=== PATIENT | female | born 1995 | race American Indian/Alaskan Native ===

== ENCOUNTER 2020-01-08 23:00 | Emergency (ER) | payer OTHER ==
[~2020-01-08] VITALS: Ht 165.1 cm; Wt 59.0 kg
== END 2020-01-09 06:28 | disposition home or self-care (01) ==
LOC: ED 23:00
DX: F10.129 Alcohol abuse with intoxication, unspecified (principal); Y90.8 Blood alcohol level of 240 mg/100 ml or more
CPT/HCPCS: 70450; 72125; 99284-25; G0480

== ENCOUNTER 2021-12-19 06:00 | Day surgery (SDC) | payer OTHER ==
[~2021-12-19] VITALS: Ht 165.1 cm; Wt 71.8 kg
[~2021-12-19 06:00] MED LIST: CLONAZEPAM0.5 MG PO; PROZAC20 MG PO
--- NOTE | 2021-12-19 09:41 | NUR ---
12/19/21 0941 Gina Daniels 0852 PT ARRIVED IN PACU NON RESPONSIVE TO NOXIOUS STIMULI WITH OPA IN PLACE. 0855 PT REACTIVE. OPA REMOVED. 0900 C/O FEELING COLD. WARM BLANKETS AND ELA PAWS ON. 15 RESTING. REU. 0935 TO DS. NO C/O'S. REPORT GIVEN TO RN. FAMILY AT BEDSIDE.
--- NOTE | 2021-12-19 09:49 | NUR ---
0935: PT ARRIVES TO DS TREATMENT ROOM FROM PACU VIA STRETCHER WITH EYES CLOSED. PT DENIES PAIN OR NAUSEA WHEN ASKED. PT COLD AND HAS SEVERAL BLANKETS IN PLACE. FAMILY AT BEDSIDE, CALL LIGHT WITHIN REACH.
--- NOTE | 2021-12-19 10:42 | NUR ---
1030: CHECKED PATIENT. SLEEPING. AWAKENS EASILY TO VOICE. VS CHECKED. DENIES PAIN. ABDOMINAL BANDAIDS X 3 WITH SCANT AMOUNT OF DRAINAGE. PATIENT HAS NO NEEDS AT THIS TIME. FAMILY AT BEDSIDE. WILL CONTINUE TO LET PATIENT SLEEP. CALL LIGHT WITHIN REACH.
--- NOTE | 2021-12-19 11:44 | NUR ---
1135: PATIENT STILL SLEEPING. AWAKENED FOR VS CHECK AND ASSESSMENT. DENIES PAIN. ABDOMINAL SITES WITH RED DRAINAGE. SCANT AMOUNT OF DRAINAGE ON RIGHT AND LEFT LAP SITES. SMALL AMOUNT OF DRAINAGE FROM UMBILICUS SITE. IV SITE WNL. SCDs ON. CALL LIGHT WITHIN REACH.
--- NOTE | 2021-12-19 12:36 | NUR ---
PATIENT AWAKENED FOR VS CHECK. LIGHTS TURNED ON. HEAD OF BED RAISED. PATIENT GIVEN ICE WATER AND BHANU CRACKERS. MOM AT BEDSIDE. CALL LIGHT WITHIN REACH.
[2021-12-19] MEDS ORDERED: IBUPROFEN800 MG PO (12:48)
[2021-12-19] MEDS ORDERED: TYLENOL EXTRA500 MG PO (12:49)
[2021-12-19] MEDS ORDERED: OXYCODONE HCL5 MG PO (12:50)
[2021-12-19] MEDS ORDERED: ONDANSETRON ODT8 MG PO (12:51)
--- NOTE | 2021-12-19 14:14 | NUR ---
1245: PATIENT MEDICATED FOR PAIN WITH 1 TAB OF PERCOCET. MOTHER AT BEDSIDE. CALL LIGHT WITHIN REACH. 1315: PATIENT ASSISTED OOB AND TO BATHROOM. GAIT STEADY. VOID APPROXIMATELY 1000 ML. GAIT STEADY BACK TO ROOM. PATIENT GETTING DRESSED. 1340: DISCHARGE INSTRUCTIONS GIVEN TO PATIENT AND MOTHER. IV DC'D WNL. TIP INTACT. DRESSING APPLIED. PATIENT DISCHARGED TO HOME WITH MOTHER VIA WHEELCHAIR.
--- NOTE | 2021-12-21 09:41 | PATH ---
[facility] [address] [place], [place] [address] Signed SPECIMEN(S): A RIGHT OVARY AND FALLOPIAN TUBE SPECIMEN SOURCE: A. RIGHT OVARY AND FALLOPIAN TUBE CLINICAL HISTORY: Right ovarian mass. Laparoscopy. 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 - Non-neoplastic benign stroma demonstrates a cystic follicle. - Fallopian tube within normal limits. TWK:tommyw:C2NR MICROSCOPIC EXAMINATION: Histologic sections of all submitted blocks are examined by light microscopy. These findings, together with the gross examination, support the pathologic diagnosis. GROSS DESCRIPTION: The specimen, labeled "WK" is received in formalin and consists of a deflated right ovary specimen with the fallopian tube and fimbria. The right ovary measures 15 x 15 x 1 cm. The fallopian tube measures 8.5 x 1.3 cm and the fimbria measures 2.5 x 2 x 1.3 cm. The serosal surface is pink, smooth and glistening with a vascular pattern, entirely inked in blue. Within the inner surface there is an oval-shaped yellow area that measures 4 x 3.5 x 1 cm in height. The cut surfaces reveals fibroadipose and yellow content with focal calcified areas and hairs. The remainder of inner surface is smooth, glistening and pink with a vascular pattern. Drum Sprayer sections are submitted in cassettes (A1-A4). (A1) - Fallopian tube and fimbria. (A2) - Oval-shaped yellow area with hair and creamy content. (A3-A4) - Ovarian wall full-thickness. KV (under the direct supervision of a pathologist) The Gross Description was prepared using a voice recognition system. The report was reviewed for accuracy; however, sound-alike word errors, addition and/or deletions may occur. If there is any question about this report, please contact Client Services. PATIENT NAME: BRANDI HERNANDES PATHOLOGY DATE OF : [birth year] REPORT #: [id number] PHYSICIAN: GIA PATHOLOGY PCP: [facility] REPORT IS CONFIDENTIAL AND NOT TO BE RELEASED WITHOUT AUTHORIZATION [facility] [address] [place], [place] [address] Signed PERFORMING LABORATORY: The technical component was performed by [facility], [address] [place] [id number] (CLIA# [id number]). The professional interpretation [facility] performed by [facility], [facility], [facility] [address] [address] (CLIA#: [id number]). Diagnostician: Clement Reed MD Pathologist Electronically Signed 12/21/2021 Copies: ~ PATIENT NAME: BRANDI HERNANDES PATHOLOGY DATE OF : [birth year] REPORT #: [id number] PHYSICIAN: GIA NICKERSON [facility] REPORT IS CONFIDENTIAL AND NOT TO BE RELEASED WITHOUT AUTHORIZATION
--- NOTE | 2021-12-25 08:01 | OR ---
[facility] [address] [place], [place] [address] Signed DATE OF OPERATION: 12/19/2021 SURGEON: Carmen Aviles MD QUANTITATIVE ANALYST: MANUEL Avery DO PREOPERATIVE DIAGNOSIS: Right ovarian mass, probable dermoid. POSTOPERATIVE DIAGNOSIS: Right ovarian mass, probable dermoid, pending pathology. PROCEDURE: Laparoscopy, right salpingo-oophorectomy. ANESTHESIA: General ET. ESTIMATED BLOOD LOSS: 10 mL. DRAINS: None. INDICATIONS AND FINDINGS: The patient is a 26-year-old female 0, who had increasing abdominal pain in late November and presented to the emergency room for evaluation. At that time, she was found to have a very large right ovarian mass with CT consistent with a dermoid. The patient has been avoiding [facility] care for some time and has actually never had a pelvic exam. At the time of surgery, she did undergo Pap smear under anesthesia per prior arrangement. The uterus was normal. The right ovary was quite enlarged and presented above the umbilicus and mostly to the right. The patient's left tube and ovary were normal. At the time of laparoscopy, there was a very large mass, which presented above the umbilicus. Following drainage of the mass, it appeared very smooth. The fluid inside the mass was clear. DESCRIPTION OF PROCEDURE: The patient was prepped and draped in the dorsal lithotomy position. Pap smear had been obtained prior to vaginal prep and the cervix did appear normal. The cervix was Electronically Signed By: CARMEN AVILES MD 12/25/21 0801 PATIENT NAME: BRANDI HERNANDES OPERATIVE REPORT DATE OF : [birth year] REPORT #: [id number] PHYSICIAN: CARMEN AVILES MD PCP: [facility] REPORT IS CONFIDENTIAL AND NOT TO BE RELEASED WITHOUT AUTHORIZATION [facility] [address] [place], [place] [address] Signed visualized after placement of a weighted speculum. The anterior lip of the cervix was grasped with a single-tooth tenaculum and the Hulka clamp placed. The tenaculum and speculum were removed. Attention was directed above. Because of the size of the mass, the incision was made supraumbilically in the midline. This area was injected with 0.5% Marcaine plain. An incision was made with a knife and each layer serially elevated and incised until the fascia was opened and identified and stay sutures of 0 Vicryl were placed. The peritoneum was opened bluntly. This brought the incision to the upper aspect of the mass. The small Grayson was introduced into the incision and a lap tape packed around the top of the mass. An incision was made with a knife at the top of the mass and suction was used to suck out the contents of the cyst. Both with suction introduced into the mass as well as another suction to collect any fluid that escaped from this. At the conclusion of this drainage, there was almost 2000 mL of fluid that had been obtained. Following this, the mass had been drained pretty much completely. The Grayson retractor was removed and the fascial incision was closed somewhat to allow for the pneumoperitoneum to be re-accumulated after placement of the Kathrin. This was done with a running suture of 0 Vicryl. The Kathrin was then placed and the balloon inflated. Placement of the scope confirmed proper positioning and CO2 was introduced. Secondary ports were placed laterally and slightly below the level of the umbilicus. Each of these was injected with the Marcaine after transillumination and incised with a knife and the trocars placed under direct vision. These were both 5 mm ports. Following this, the patient's right ovary and tube, which had been completely deflated but was still quite large, were from their connections. The patient's right infundibulopelvic ligament was serially coagulated and divided using the LigaSure [place] device. After division, 0 PDS endo-loop was placed over the infundibulopelvic ligament to assure hemostasis. This was done x2. Following this, the LigaSure device was used to serially coagulate the broad ligament and come across the utero-ovarian ligament as well. When this was completely free, the scope was switched to the side port and the 5 mm scope introduced. The endobag was placed and the specimen placed into the bag and brought up to the umbilical port. The Kathrin was removed and the bag brought up to the incision and this was brought through the incision in the bag. The Kathrin was replaced and again the balloon inflated. The abdomen was reinspected and there was no evidence of any ongoing bleeding. The abdomen was then copiously irrigated to assure there was no fluid from the cyst present. Approximately 3000 ml of irrigation were used during this time. Following this, the procedure was terminated with removal of the instruments. As much CO2 as possible was allowed to escape. The fascial incision at the umbilical site was reidentified and closed with a running suture of 0 Vicryl. The deep space was also closed with an interrupted suture of 0- Vicryl. Superficial bleeding points at the left sided port were controlled with cautery. The skin incisions were closed with subcuticular sutures of 3-0 Vicryl Rapide. Attention was directed down below and the Hulka clamp removed. There was no evidence of any ongoing bleeding. All sponge and needle counts were correct. She was taken to recovery room in good condition. Electronically Signed By: CARMEN AVILES MD 12/25/21 0801 PATIENT NAME: BRANDI HERNANDES OPERATIVE REPORT DATE OF : [birth year] REPORT #: [id number] PHYSICIAN: CARMEN AVILES MD PCP: [facility] REPORT IS CONFIDENTIAL AND NOT TO BE RELEASED WITHOUT AUTHORIZATION [address] [address] Signed Carmen Aviles MD PJW/MODL /[id number] cc: Angel Luis Avery [facility] Copies: ANGEL LUIS [facility] ~ Electronically Signed By: CARMEN AVILES MD 12/25/21 0801 PATIENT NAME: BRANDI HERNANDES OPERATIVE REPORT DATE OF : [birth year] REPORT #: [id number] PHYSICIAN: CARMEN AVILES MD PCP: [facility] REPORT IS CONFIDENTIAL AND NOT TO BE RELEASED WITHOUT AUTHORIZATION
== END 2021-12-19 13:40 | disposition home or self-care (01) ==
LOC: DS 06:00
PROVIDERS: ATTEND Obstetrics & Gynecology
PROC: 0UT54ZZ Resection of Right Fallopian Tube, Percutaneous Endoscopic Approach (ICD-10-PCS; 2021-12-19)
PROC: 0UT04ZZ Resection of Right Ovary, Percutaneous Endoscopic Approach (ICD-10-PCS; principal; 2021-12-19 07:30)
DX: D27.0 Benign neoplasm of right ovary (principal)
CPT/HCPCS: 88307; J0131; J1100; J1644; J1885; J2001; J2250; J2370; J2405; J2704; J2765; J3010; J7121

== ENCOUNTER 2023-04-20 21:27 | Emergency (ER) | payer OTHER ==
[~2023-04-20] VITALS: Ht 165.1 cm; Wt 86.2 kg
[~2023-04-20 21:27] MED LIST changes: +CYMBALTA20 MG PO; +ESCITALOPRAM OXA5 MG PO; +IBUPROFEN800 MG PO; +ONDANSETRON ODT8 MG PO; +OXYCODONE HCL5 MG PO; +TYLENOL EXTRA500 MG PO
--- OUTSIDE RECORDS SUMMARY | 2023-04-20 21:31 | XMS ---
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 [place] has no Care Guidelines for this patient. Yoan VISIT COUNT (12 MO.) 3 [facility] TOTAL 3 NOTE: Visits indicate total known visits. ED/C VISIT TRACKING (12 MO.) 04/20/2023 21:28 [facility] [place] TYPE: Emergency COMPLAINT: - COLD SYMPTOMS 06/17/2022 17:53 [facility] [place] TYPE: Emergency COMPLAINT: - SUICIDAL IDEATION DIAGNOSES: - Alcohol use, unspecified, uncomplicated - Contact with and (suspected) exposure to COVID-19 - Major depressive disorder, single episode, unspecified - Other oysterman (current) drug therapy - Suicidal ideations 05/20/2022 02:59 [facility] [place] TYPE: Emergency COMPLAINT: - SUICIDAL IDEATION DIAGNOSES: - Alcohol abuse with intoxication, unspecified - Blood alcohol level of 240 mg/100 ml or more - Contact with and (suspected) exposure to COVID-19 - Depression, unspecified - Other detention (current) drug therapy - Suicidal ideations INPATIENT VISIT TRACKING (12 MO.) No inpatient visits to display in this time frame [email or web address]
[2023-04-20] MEDS ORDERED: BENZONATATE200 MG PO (21:41)
[2023-04-20] MEDS ORDERED: NAPROSYN500 MG PO (22:11)
[2023-04-20] MEDS ORDERED: FLONASE ALLERG9.9 ML NAS (22:11)
[2023-04-20] MEDS ORDERED: NAPROXEN 500 MG TAB PO ONE (22:15)
== END 2023-04-20 22:20 | disposition home or self-care (01) ==
LOC: ED 21:27
DX: J30.9 Allergic rhinitis, unspecified (principal); R09.82 Postnasal drip; S29.011A Strain of muscle and tendon of front wall of thorax, initial encounter; X58.XXXA Exposure to other specified factors, initial encounter; Z79.899 Other long term (current) drug therapy

== ENCOUNTER 2023-08-01 13:58 | Emergency (ER) | payer OTHER ==
[~2023-08-01] VITALS: Ht 165.1 cm; Wt 87.2 kg
[~2023-08-01 13:58] MED LIST changes: +BENZONATATE200 MG PO; +FLONASE ALLERG9.9 ML NAS; +NAPROSYN500 MG PO
--- OUTSIDE RECORDS SUMMARY | 2023-08-01 14:01 | XMS ---
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 Yoan VISIT COUNT (12 MO.) 3 [facility] TOTAL 3 NOTE: Visits indicate total known visits. ED/UCC VISIT TRACKING (12 MO.) 08/01/2023 13:58 [facility] [place] [place] TYPE: Emergency COMPLAINT: - SUICIDAL IDEATIONS 06/23/2023 10:39 [facility] [place] TYPE: Emergency COMPLAINT: - OVERDOSE DIAGNOSES: - Poisoning by benzodiazepines, intentional self-harm, initial encounter - Poisoning by propionic acid derivatives, intentional self-harm, initial encounter - Suicidal ideations - Vomiting, unspecified 04/20/2023 21:28 [facility] [place] TYPE: Emergency COMPLAINT: - COLD SYMPTOMS DIAGNOSES: - Allergic rhinitis, unspecified - Cough, unspecified - Exposure to other specified factors, initial encounter - Other long term care social worker (current) drug therapy - Postnasal drip - Strain of muscle and tendon of front wall of thorax, initial encounter INPATIENT VISIT TRACKING (12 MO.) No inpatient visits to display in this time frame [email or web address]
[2023-08-01 14:33] LABS: BILIRUBIN, URINE NEGATIVE (negative); BLOOD/HGB, URINE NEGATIVE (Negative); KETONE, URINE NEGATIVE (Negative); LEUK ESTERASE, URINE TRACE (negative); NITRITE, URINE NEGATIVE (negative)
[2023-08-01 14:35] LABS: BASOPHILS 1.2 % (0-2); EOSINOPHILS 3.2 % (0-6); HEMATOCRIT 44.7 % (35.0-50.0); HEMOGLOBIN 14.7 g/dL (12.0-18.0); LYMPHOCYTES 34.8 % (24-44); MCHC 32.9 g/dl (30-36); MCV 88.3 fl (81-99); MONOCYTES 3.6 % (0-12); NEUTROPHILS 57.2 % (39-80); PLATELET COUNT 324 K/uL (140-440); RBC 5.06 M/ul (4.3-5.7); RDW 16.8 (10.5-15.0)
[2023-08-01 14:45] LABS: RED BLOOD CELLS, URINE 0-1 /hpf (0-5)
[2023-08-01 14:46] LABS: BACTERIA, URINE NONE SEEN /hpf (negative); CASTS, URINE NONE SEEN \\lpf; COLLECTION TYPE, URINE CLEAN CATCH; CRYSTALS, URINE NONE SEEN (0-1+); REFLEX CULTURE, URINE No (No)
[2023-08-01 14:47] LABS: AMPHETAMINES, URINE NEGATIVE (NEGATIVE); BARBITURATES, URINE NEGATIVE (NEGATIVE); BENZODIAZEPINE, URINE NEGATIVE (NEGATIVE); BUPRENORPHINE, URINE NEGATIVE (NEGATIVE); CANNABINOID, URINE NEGATIVE (NEGATIVE); COCAINE, URINE NEGATIVE (NEGATIVE); ECSTASY, URINE NEGATIVE (NEGATIVE); FENTANYL, URINE NEGATIVE (NEGATIVE); METHADONE, URINE NEGATIVE (NEGATIVE); OPIATES, URINE NEGATIVE (NEGATIVE); OXYCODONE, URINE NEGATIVE (NEGATIVE); PHENCYCLIDINE, URINE NEGATIVE (NEGATIVE)
[2023-08-01 14:52] LABS: ACETAMINOPHEN 0 ug/mL (10-30); SALICYLATE 1.1 mg/dL (2.8-20.0)
[2023-08-01 15:02] LABS: ALBUMIN 4.1 g/dL (3.4-5.0); ALBUMIN/GLOBULIN RATIO 0.95 (1.1-2.4); ALCOHOL, MEDICAL 234 ng/dL (<3); ALKALINE PHOSPHATASE 85 U/L (46-116); ALT (SGPT) 143 U/L (14-59); ANION GAP 18.9 (7-21); AST (SGOT) 143 U/L (15-37); BILIRUBIN, TOTAL 0.2 ng/dL (0.2-1.0); BUN/CREATININE RATIO 4.47 (6.0-28.6); CALCIUM 8.5 mg/dL (8.5-10.1); CARBON DIOXIDE 22 mmol/L (21-32); CHLORIDE 102 mmol/L (98-107); CREATININE, SERUM 0.67 mg/dL (0.55-1.02); GLOMERULAR FILTRATION RATE,EST 124 mL/min (>60); POTASSIUM 3.9 mmol/L (3.5-5.1); PROTEIN, TOTAL 8.4 g/dL (6.4-8.2); TSH, 3RD GENERATION 0.973 uIU/mL (0.358-3.740); UREA NITROGEN 3 mg/dL (7-18)
[2023-08-01 16:19] LABS: SOURCE, WET MOUNT VAGINAL; WBC, WET MOUNT 1+ (NEGATIVE)
[2023-08-01 16:21] LABS: BACTERIA, WET MOUNT 1+ (NEGATIVE); CLUE CELLS, WET MOUNT NEGATIVE (NEGATIVE); TRICHOMONAS, WET MOUNT NEGATIVE (NEGATIVE); YEAST, WET MOUNT NEGATIVE (NEGATIVE)
[2023-08-01 16:22] LABS: RBC, WET MOUNT 3+ (NEGATIVE)
[2023-08-01 16:23] LABS: EPITHELIAL CELLS, WET MOUNT NEGATIVE (NEGATIVE)
[2023-08-01 16:43] VITALS: BP 114/86
[2023-08-01 17:30] LABS: N. GONORRRHOEAE BY PCR NOT DETECTED (NOT DETECT)
[2023-08-03 15:00] LABS: RAPID PLASMA REAGIN (RPR) Non Reactive (Non Reactive)
== END 2023-08-01 16:49 | disposition other institution, planned readmission (95) ==
LOC: ED 13:58
PROVIDERS: Emergency Medicine
DX: R45.851 Suicidal ideations (principal); F10.129 Alcohol abuse with intoxication, unspecified; R74.01 Elevation of levels of liver transaminase levels; Z79.899 Other long term (current) drug therapy
CPT/HCPCS: 36415; 80053; 80307; 81001; 84443; 84703; 85025; 87210; 99285; G0480

== ENCOUNTER 2024-04-24 20:29 | Emergency (ER) | payer OTHER ==
[~2024-04-24] VITALS: Ht 165.1 cm; Wt 125.6 kg
[2024-04-24 20:45] LABS: BASOPHILS 1.2 % (0-2); EOSINOPHILS 2.6 % (0-6); HEMATOCRIT 41.9 % (35.0-50.0); HEMOGLOBIN 13.8 g/dL (12.0-18.0); LYMPHOCYTES 46.3 % (24-44); MCH 28.5 (27-36); MCHC 32.9 g/dl (30-36); MCV 86.8 fl (81-99); MONOCYTES 4.4 % (0-12); NEUTROPHILS 45.5 % (39-80); PLATELET COUNT 360 K/uL (140-440); RBC 4.83 M/ul (4.3-5.7)
[2024-04-24] MEDS ORDERED: MIDAZOLAM HCL 2 MG/2 ML VIAL IV ONE (20:45)
[2024-04-24] MEDS ORDERED: DIPHTH,PERTUSS(ACELL),TET VAC 0.5 ML SYRINGE IM ONE (20:45)
[2024-04-24] MEDS ORDERED: LACTATED RINGER'S 1,000 ML IV ONE ×2 (20:45→23:45)
[2024-04-24 20:56] LABS: ALBUMIN 3.5 g/dL (3.4-5.0); ALBUMIN/GLOBULIN RATIO 0.9 (1.1-2.4); ANION GAP 20.5 (7-21); BILIRUBIN, TOTAL 0.3 mg/dL (0.2-1.0); BUN/CREATININE RATIO 7.46 (6.0-28.6); CALCIUM 8.2 mg/dL (8.5-10.1); CREATININE, SERUM 0.67 mg/dL (0.55-1.02); POTASSIUM 3.5 mmol/L (3.5-5.1); PROTEIN, TOTAL 7.4 g/dL (6.4-8.2)
[2024-04-24 21:31] LABS: ABO O; ANTIBODY SCREEN NEGATIVE; RH POSITIVE
[2024-04-24 21:34] LABS: BILIRUBIN, URINE NEGATIVE (negative); BLOOD/HGB, URINE TRACE-I (Negative); KETONE, URINE NEGATIVE (Negative); LEUK ESTERASE, URINE NEGATIVE (negative); NITRITE, URINE NEGATIVE (negative)
[2024-04-24 21:44] LABS: BACTERIA, URINE RARE /hpf (negative); CASTS, URINE NONE SEEN \\lpf; COLLECTION TYPE, URINE CLEAN CATCH; CRYSTALS, URINE NONE SEEN (0-1+); EPITHELIAL CELLS, URINE SQUAMOUS 1+ /lpf (0-1+); REFLEX CULTURE, URINE No (No)
[2024-04-24 22:00] LABS: AMPHETAMINES, URINE NEGATIVE (NEGATIVE); BARBITURATES, URINE NEGATIVE (NEGATIVE); BENZODIAZEPINE, URINE NEGATIVE (NEGATIVE); BUPRENORPHINE, URINE NEGATIVE (NEGATIVE); CANNABINOID, URINE NEGATIVE (NEGATIVE); COCAINE, URINE NEGATIVE (NEGATIVE); ECSTASY, URINE NEGATIVE (NEGATIVE); FENTANYL, URINE NEGATIVE (NEGATIVE); METHADONE, URINE NEGATIVE (NEGATIVE); OPIATES, URINE NEGATIVE (NEGATIVE); OXYCODONE, URINE NEGATIVE (NEGATIVE); PHENCYCLIDINE, URINE NEGATIVE (NEGATIVE)
[2024-04-24 22:24] LABS: ACETAMINOPHEN 0 ug/mL (10-30); SALICYLATE 1.6 mg/dL (2.8-20.0); TSH, 3RD GENERATION 2.692 uIU/mL (0.358-3.740)
[2024-04-25 08:28] VITALS: BP 126/102
== END 2024-04-25 08:28 | disposition home or self-care (01) ==
LOC: ED 20:29
PROVIDERS: Family Medicine
DX: S16.1XXA Strain of muscle, fascia and tendon at neck level, initial encounter (principal); S80.11XA Contusion of right lower leg, initial encounter; S80.12XA Contusion of left lower leg, initial encounter; R45.851 Suicidal ideations; F10.929 Alcohol use, unspecified with intoxication, unspecified; Y90.8 Blood alcohol level of 240 mg/100 ml or more; V89.2XXA Person injured in unspecified motor-vehicle accident, traffic, initial encounter; Z79.899 Other long term (current) drug therapy
CPT/HCPCS: 36415; 70450; 70486; 71260; 72125; 74177; 80053; 80307; 81001; 83690; 84443; 84703; 85025; 86850; 86900; 86901; 90471; 90715; 99284-25; G0480; J7121; Q9967